=== PATIENT | female | born 1935 | race Hispanic/Latino ===

== ENCOUNTER 2019-02-06 05:12 | Observation (INO) | payer OTHER ==
--- NOTE | 2019-02-03 15:26 | Diagnostic Imaging Report ---
EXAMINATION: PA and lateral views of the chest. COMPARISON: None CLINICAL HISTORY: Preadmission, knee pain DISCUSSION: Lines/tubes: None. Lungs: The lungs are well inflated and clear. No pneumonia or pulmonary edema. Pleura: No pleural effusion or pneumothorax. Heart and mediastinum: The cardiomediastinal silhouette is normal. Bones and soft tissues: No acute bony abnormalities. IMPRESSION: No acute cardiopulmonary abnormalities. Signed by: Dr. Manjit Vasquez M.D. on 02/03/2019 3:23 PM
[~2019-02-06] VITALS: Ht 149.9 cm; Wt 61.4 kg
--- OUTSIDE RECORDS SUMMARY | 2019-02-06 05:14 | XMS REPORT ---
[facility] Address Unknown Phone Unavailable Care Team Providers Care Repairer Veneer Sheet Name Role Phone JESSICA OTOOLE Unavailable Unavailable Problems This patient has no known problems. Allergies, Adverse Reactions, Alerts This patient has no known allergies or adverse reactions. Medications This patient has no known medications. Results Test Description Test Time Test Comments Text Results Atomic Results Result Comments CHEST 2 VIEWS 2019-02-03 15:22:00 [place] [address] Patient Name: LAURITA RICKS MR #: [id number] : 1935 Age/Sex: 83/F Req #: [id number] [facility] Physician: Ordered by: JESSICA OTOOLE MD Report #: [id number] Location: OR Room/Bed: Procedure: [id number] DX/CHEST 2 VIEWS Exam Date: 02/03/19 Exam Time: 1443 REPORT STATUS: Signed EXAMINATION: PA and lateral views of the chest. COMPARISON: None CLINICAL HISTORY: Preadmission, knee pain DISCUSSION: Lines/tubes: None. Lungs: The lungs are well inflated and clear. No pneumonia or pulmonary edema. Pleura: No pleural effusion or pneumothorax. Heart and mediastinum: The cardiomediastinal silhouette is normal. Bones and soft tissues: No acute bony abnormalities. IMPRESSION: No acute cardiopulmonary abnormalities. Signed by: Dr. Jus Muñoz M.D. on 02/03/2019 3:23 PM Dictated By: JUS MUÑOZ MD [id number] Transcribed By: EDUAR on 02/03/19 1523 COPY TO: JESSICA OTOOLE MD
[2019-02-06] MEDS ORDERED: PRE (06:20)
[2019-02-06] MEDS ORDERED: LOSARTAN-HCTZ1 EACH (06:20)
[2019-02-06] MEDS ORDERED: ACULAR5 ML (06:20)
[2019-02-06] MEDS ORDERED: METFORMIN HCL500 MG PO (06:20)
[2019-02-06] MEDS ORDERED: AMLODIPINE BESYL5 MG PO (06:20)
[2019-02-06] MEDS ORDERED: DECARA25000 UNIT (06:20)
[2019-02-06] MEDS ORDERED: XYZAL5 MG (06:20)
[2019-02-06] MEDS ORDERED: SODIUM CHLORIDE 0.9% 500ML 500 ML ONE (06:24)
[2019-02-06] MEDS ORDERED: VANCOMYCIN HCL 1,000 MG ONE (06:24)
[2019-02-06] MEDS ORDERED: TRANEXAMIC ACID 1,000 MG/10 ML ML ONE (06:25)
[2019-02-06] MEDS ORDERED: BACITRACIN 50,000 UNIT VIAL ONE (06:25)
[2019-02-06] MEDS ORDERED: CELECOXIB 200 MG CAP ONE (06:31)
[2019-02-06] MEDS ORDERED: GABAPENTIN 300 MG CAP ONE (06:32)
[2019-02-06] MEDS ORDERED: DEXAMETHASONE SOD PHOS 10 MG/1 ML VIAL ONE (06:32)
[2019-02-06] MEDS ORDERED: VANCOMYCIN 1GM/NS 250 ML 250 ML ONE (06:32)
[2019-02-06] MEDS ORDERED: ROPIVACAINE 246.25 MG, EPINEPHRINE HCL 1:1000 1ML 0.5 MG, CLONIDINE HCL 0.08 MG, KETORO... INJ ONE ×5 (07:30)
[2019-02-06] MEDS ORDERED: ZOLPIDEM TARTRATE 5 MG TAB PO PRN (08:15)
[2019-02-06] MEDS ORDERED: HYDROCODONE/APAP 7.5MG-325MG 1 EA TAB PO PRN (08:15)
[2019-02-06] MEDS ORDERED: DOCUSATE SODIUM 100 MG CAP PO PRN (08:15)
[2019-02-06] MEDS ORDERED: ACETAMINOPHEN 650 MG SUPP PR PRN (08:15)
[2019-02-06] MEDS ORDERED: PROMETHAZINE HCL (IM) 25 MG/ML VIAL INJ PRN (08:15)
[2019-02-06] MEDS ORDERED: ONDANSETRON HCL INJ 2MG/ML 2ML 2 MG/ML VIAL IV PRN (08:15)
[2019-02-06] MEDS ORDERED: DIPHENHYDRAMINE HCL INJ 50 MG/ML VIAL IM/IV PRN (08:15)
[2019-02-06] MEDS ORDERED: HYDROCODONE/APAP 5MG-325MG TAB PO PRN (08:15)
--- NOTE | 2019-02-06 08:59 | Diagnostic Imaging Report ---
Right knee-2 views History: Postoperative radiographs. Comparison: None. Findings: Status post right total knee arthroplasty and patellar resurfacing with prosthetic components in anatomic alignment. Overlying subcutaneous emphysema and surgical skin fredi are present. IMPRESSION: Status post right knee replacement in anatomic position. Signed by: Dr. Louie Jiménez MD on 02/06/2019 8:56 AM
[2019-02-06] MEDS: ASPIRIN 325 MG TAB PO SCH ×2 (09:00→18:04)
[2019-02-06] MEDS ORDERED: CELECOXIB 100 MG CAP PO SCH (09:00)
--- NOTE | 2019-02-06 11:07 | Operative Report ---
DATE OF PROCEDURE: 02/06/2019 SURGEON: Luis Miguel Carty MD MANAGER EQUIPMENT: Herminio Celis, certified PA. PREOPERATIVE DIAGNOSIS: Osteoarthritis, right knee. POSTOPERATIVE DIAGNOSIS: Osteoarthritis, right knee. PROCEDURE: Right total knee arthroplasty. INDICATIONS: The patient is an 83-year-old lady with end-stage arthritis of her right knee. She has failed conservative management and would like to proceed with a right total knee replacement. The risks and benefits have been discussed. The recovery has been explained. She has good family support. She states she understands and wishes to proceed. DESCRIPTION OF PROCEDURE: The patient was brought to the operating room and placed under general anesthetic. She received prophylactic antibiotics, a regional block and tranexamic acid in the holding area. Her right lower extremity was prepped and draped in the sterile manner. A preoperative time-out was performed. The extremity was exsanguinated and a proximal tourniquet was inflated to 300 mmHg. An anterior approach with a medial parapatellar arthrotomy was performed. Clear synovial fluid was removed from the joint. Soft tissue releases were performed to bring the knee up into flexion with the patella everted. Complete loss of articular cartilage in the medial compartment was noted. There was polished subchondral bone. The meniscal remnants and marginal osteophytes were removed. The cruciate ligaments were sacrificed. A Amaya and NephXDx knee system was used. An extramedullary cutting guide was used to resect the proximal tibia. The 9 mm tibial cut was referenced off the unaffected lateral compartment. The tibial base plate was a size #2. The central fin punch was impacted and attention was directed toward the distal femur. An intramedullary cutting guide was used to resect the distal femur in 5 degrees of valgus and rotation referencing off a combination of landmarks including Whitesides line, the epicondylar axis and the posterior condyles. The femoral component was a size #3. The anterior and posterior cuts were made. A 9 mm ultracongruent tibial insert was trialed. This provided appropriate soft tissue balancing in full extension and 90 degrees of flexion. The patella was resurfaced with a 26 mm x 7.5 mm patellar button. The thickness was checked before and after was right around 20 mm. Patellar tracking was concentric. The trial implants were removed. A 100 mL premixed pericapsular JOSE injection was placed into the surrounding soft tissue. The knee was thoroughly irrigated with a shower tip pulsatile lavage. The knee had been irrigated multiple times during the case with a spray bottle with diluted polymyxin and vancomycin spray. The components were cemented into place using a single mix of Palacos cement preloaded with antibiotics. Care was taken to remove extravasated cement. The wound was further irrigated while the cement cured. 500 mg of vancomycin powder was then sprinkled into the joint. The arthrotomy was closed with interrupted #1 Ethibond. The knee was put through flexion and extension to ensure a secure closure. The skin was closed with subcuticular Vicryl and fredi. A sterile bandage was applied. The patient was extubated and transferred to the recovery room in stable condition. Blood loss was minimal. All needle and sponge counts were correct. Luis Miguel Carty MD DR/YAMILA /[id number]
[2019-02-06] MEDS: SODIUM CHLORIDE 0.9% 1000ML 1,000 ML IV SCH ×2 (11:30→21:30)
[2019-02-06] MEDS: ACETAMINOPHEN 1000 MG/100 ML IV SCH ×2 (12:00→18:04)
[2019-02-06] MEDS ORDERED: ACETAMINOPHEN 1000 MG/100 ML 0 ML IV ONE (15:35)
[2019-02-06 16:25] VITALS: BP 129/56
[2019-02-06 16:37] VITALS: BP 129/56
[2019-02-06] MEDS ORDERED: LIDOCAINE HCL 2% LOCAL INJ 5 ML SDV VIAL INJ ONE (17:40)
[2019-02-06] MEDS ORDERED: ACETAMINOPHEN 1000 MG/100 ML IV ONE (17:40)
[2019-02-06] MEDS ORDERED: PROPOFOL IV EMULSION 10 MG/ML 20 ML VIAL ONE (17:40)
[2019-02-06] MEDS ORDERED: SEVOFLURANE INHAL SOLN 250 ML PEN BTL ONE (17:40)
[2019-02-06] MEDS ORDERED: ONDANSETRON HCL INJ 2MG/ML 2ML 2 MG/ML VIAL ONE (17:40)
[2019-02-06] MEDS ORDERED: ROPIVACAINE 0.5% 5 MG/ML 30 ML SDV ONE (17:51)
[2019-02-06] MEDS ORDERED: LIDOCAINE 2%/ EPINEPHRINE 20ML MDV ONE (17:51)
[2019-02-06] MEDS: CELECOXIB 200 MG CAP PO SCH (18:04)
[2019-02-06] MEDS: VANCOMYCIN 1GM/NS 250 ML 250 ML IV SCH (18:20)
[2019-02-06] MEDS ORDERED: MIDAZOLAM HCL 2 MG/2 ML VIAL ONE (18:45)
[2019-02-06] MEDS ORDERED: FENTANYL CITRATE/PF 100MCG/2 ML INJ ONE (18:45)
--- NOTE | 2019-02-06 19:10 | NUR ---
Report taken from morning rn.assessment done.no resp.distress.no pain voiced.voided in bed lopez.plexi pump is in place.dressing site is dry and intact.bed locked and in lowest position.phone and sarah light within reach.instructed to call for assistance as needed.
--- NOTE | 2019-02-06 19:45 | NUR ---
cpm applied @ flexion degree 50.pt tolerated well.
[2019-02-06 20:00] VITALS: BP 121/58
--- NOTE | 2019-02-06 21:45 | NUR ---
stopped cpm machine.
[2019-02-06 22:30] VITALS: BP 121/58
[2019-02-06 23:48] VITALS: BP 128/60
[2019-02-07] MEDS: ACETAMINOPHEN 1000 MG/100 ML IV SCH ×2 (00:02→05:45)
[2019-02-07 04:00] VITALS: BP 120/60
[2019-02-07 05:50] LABS: HEMATOCRIT 30.3 % (34.2-44.1); HEMOGLOBIN 10.2 g/dL (12.0-16.0)
[2019-02-07] MEDS: VANCOMYCIN 1GM/NS 250 ML 250 ML IV SCH (06:00)
--- NOTE | 2019-02-07 06:41 | Consultation ---
DATE OF CONSULTATION: REASON FOR CONSULTATION: Medical management. HISTORY OF PRESENT ILLNESS: The patient is an 83-year-old lady , osteoarthritis. She is doing well postoperatively with minimal pain in the right knee. REVIEW OF SYSTEMS: She denies on review of systems of any chest pain, fever, chills, nausea, vomiting, headache, shortness of breath, or dizziness. PAST MEDICAL HISTORY: Significant for diabetes, hypertension, hyperlipidemia, osteoporosis. MEDICATIONS: See DEC. ALLERGIES: NAPROXEN AND PENICILLIN. FAMILY HISTORY: Noncontributory at this time. SOCIAL HISTORY: Nonsmoker, nondrinker and . PHYSICAL EXAMINATION: VITAL SIGNS: Temperature 98.1, pulse 57, blood pressure 120/60, sats 97% on room air. GENERAL: She is no apparent distress, lying in bed. NECK: Supple. LUNGS: Clear to auscultation bilaterally. CARDIOVASCULAR: Regular rate and rhythm. ABDOMEN: Good bowel sounds. Soft, nontender. EXTREMITIES: No clubbing or cyanosis. NEUROLOGIC: Nonfocal. ASSESSMENT/PLAN: 1. Status post total knee arthroplasty. Continue with pain control. 2. Anemia. Check a CBC. 3. Diabetes. Continue with current care and monitoring. 4. Hyperlipidemia. We will restart her Livalo. 5. Hypertension. We will continue with her home medication and monitor. Please see hospital chart for full details. MD CECE Killian/YAMILA /[id number]
--- NOTE | 2019-02-07 06:50 | NUR ---
Cpm applied @ 0600am.Report given to the oncoming rn.walking rounds done.stable condition.
[2019-02-07] MEDS: SODIUM CHLORIDE 0.9% 1000ML 1,000 ML IV SCH (07:30)
--- NOTE | 2019-02-07 07:32 | NUR ---
RECEIVED PATIENT AND WALKING ROUNDS COMPLETE. PATIENT ON CPM AT THIS TIME. NO SIGNS OF DISTRESS CALL LIGHT IN REACH, WILL CONTINUE TO MONITOR.
[2019-02-07 08:00] VITALS: BP 119/57
[2019-02-07] MEDS ORDERED: METFORMIN HCL 500 MG TAB PO SCH ×2 (08:00→09:00)
--- NOTE | 2019-02-07 08:05 | NUR ---
TOOK PATIENT OUT OF CPM AT THIS TIME. PATIENT TOLERATED WELL, NO SIGNS OF DISTRESS. CALL LIGHT IN REACH.
[2019-02-07] MEDS ORDERED: ACETAMINOPHEN 1000 MG/100 ML IV PRN (08:15)
[2019-02-07] MEDS ORDERED: AMLODIPINE BESYLATE 5 MG TAB PO SCH (09:00)
[2019-02-07] MEDS ORDERED: LOSARTAN POTASSIUM 100 MG TAB PO SCH (09:00)
--- NOTE | 2019-02-07 09:12 | NUR ---
PATIENT WALKING IN CASTRO WITH PT AT THIS TIME. STEADY GAIT, GAIT BELT IN PLACE.
[2019-02-07] MEDS: CELECOXIB 200 MG CAP PO SCH (09:34)
[2019-02-07] MEDS: ASPIRIN 325 MG TAB PO SCH (09:34)
[2019-02-07 09:49] VITALS: BP 119/57
[2019-02-07] MEDS ORDERED: NORCO 7.5-3251 EACH PO (10:13)
[2019-02-07 12:00] VITALS: BP 106/53
--- NOTE | 2019-02-07 12:36 | NUR ---
CASE MANAGEMENT ASSESSMENT Surgical Tech to bedside to discuss plan of care with patient/family. CM/SW role and care transitions discussed. Anticipated discharge plan discussed along with duration of care. CM/SW discussed patients right to make decisions in care. CM/SW work hours given. Spoke with pt and her granddaughter Lizabeth at bedside Patient lives: with her son, but will be staying with her daughter and granddaughter on discharge Admit/Transfer: thru PACU Hospital/ER visits since last admit: 0 POA/Emergency contact: daughter in law Dee Cervantes [phone] Current/Previous Home Health: none. Home health referral was sent to [facility] by Dr. Carty's office prior to pt's arrival. CM called and spoke to Arline at [facility] who said they could not accept pt due to her insurance. CM informed pt's family at bedside. CM also informed Dalia at Dr. Carty's office. She will work on getting a new home health. CM asked her to call pt once new home health is set up. Pt will be staying with her daughter at [address] [place] [id number] PCP/Follow-up Care: Will follow up with Dr. Carty as instructed Current/Previous DME: MICHAEL galloway, CPM delivered to bedside Medications (referring to index hospitalization or the first time you were in the hospital) a. Were changes made in your medications when you were in the hospital on [date of index hospitalization]? n/a b. Did you understand the changes? n/a c. Were you able to obtain your new medications right away? n/a d. Were you able to take your medications like the doctor wanted you to? n/a e. Did the hospital give you an accurate, easy to understand list of medications when you left? n/a Scale of 1-10 how comfortable does patient feel with disease management in outpatient settin Other Services: none Employment Status: retired Areas of Concerns: recent surgery Referral Needs: home health Education Needs: medical management, therapy, post operative instructions IMM/SAWYER given and signed (if applicable): n/a Goal for discharge: home with home health CM/SW left business card at the bedside with contact information. Name and number was also written on the patients whiteboard. Patient verbalized understanding of discussion. CM will follow-up with ongoing discharge and transition of care needs.
[2019-02-07] MEDS ORDERED: ONDANSETRON HCL 4 MG ORAL DISINTEGRATING TAB PO PRN (13:45)
--- NOTE | 2019-02-07 14:00 | NUR ---
REMOVED PATIENTS IV. CATHETER TIP INTACT AND PRESSURE DRESSING APPLIED.
--- NOTE | 2019-02-07 14:19 | NUR ---
PATIENT DISCHARGED FROM FACILITY. PATIENT GATHERED ALL PERSONAL BELONGINGS INCLUDING DISCHARGE INSTRUCTIONS AND FOLLOW UP INFORMATION/PRESCRIPTIONS.
[2019-02-07] MEDS ORDERED: LORATADINE 10 MG TAB PO SCH (21:00)
--- NOTE | 2019-02-08 10:15 | NUR ---
CM received call from pt's daughter in law Dee Correa [phone] inquiring about pt's home health. CM informed her CM will contact Dalia and get back with her. Contacted Dalia and got home health information. [facility] [phone]. CM called and spoke to Stephanie with home health. She stated that they were pending authorization, but will be in touch with the family once everything goes thru. CM called and updated Dee Correa.
== END 2019-02-07 14:19 | disposition home health service (06) ==
LOC: OR 05:12 → PACU V 08:17 → MED/SURG 15:58
PROVIDERS: ADMIT Specialist; ATTEND Specialist
DX: M17.11 Unilateral primary osteoarthritis, right knee (principal); E11.9 Type 2 diabetes mellitus without complications; Z79.84 Long term (current) use of oral hypoglycemic drugs; Z88.6 Allergy status to analgesic agent; Z88.0 Allergy status to penicillin; D64.9 Anemia, unspecified; E78.5 Hyperlipidemia, unspecified; I10 Essential (primary) hypertension; Z01.811 Encounter for preprocedural respiratory examination
CPT/HCPCS: 36415; 71046; 82948; 85014; 85018; 86850; 86900; 86920; G0378; J0171; J1100; J1200; J1885; J2001; J2250; J2405; J2550; J2795; J3370; J7030; J7040

== ENCOUNTER 2019-04-21 13:00 | Outpatient (RCR) | payer OTHER ==
[~2019-04-21 13:00] MED LIST: ACULAR5 ML; AMLODIPINE BESYL5 MG PO; DECARA25000 UNIT; LOSARTAN-HCTZ1 EACH; METFORMIN HCL500 MG PO; NORCO 7.5-3251 EACH PO; PRE; XYZAL5 MG
== END 2019-04-23 ==
LOC: PT 13:00
PROVIDERS: ATTEND Specialist
DX: Z96.651 Presence of right artificial knee joint (principal); Z47.33 Aftercare following explantation of knee joint prosthesis; M17.11 Unilateral primary osteoarthritis, right knee

== ENCOUNTER → 2019-05-24 | Outpatient (RCR) | payer OTHER | LOC: PT 04-24 16:10 | PROVIDERS: ATTEND Specialist | DX: Z96.651 Presence of right artificial knee joint (principal); Z47.33 Aftercare following explantation of knee joint prosthesis; M17.11 Unilateral primary osteoarthritis, right knee | CPT/HCPCS: 97139 ==

== ENCOUNTER 2019-06-23 12:58 | Outpatient (RCR) | payer OTHER | END 2019-06-24 | LOC: PT 12:58 | PROVIDERS: ATTEND Specialist | DX: Z96.651 Presence of right artificial knee joint (principal); Z47.33 Aftercare following explantation of knee joint prosthesis; M17.11 Unilateral primary osteoarthritis, right knee ==

== ENCOUNTER 2019-07-06 11:00 | Outpatient (RCR) | payer OTHER | END 2019-07-24 | LOC: PT 11:00 | PROVIDERS: ATTEND Specialist | DX: Z96.651 Presence of right artificial knee joint (principal); Z47.33 Aftercare following explantation of knee joint prosthesis; M17.11 Unilateral primary osteoarthritis, right knee | CPT/HCPCS: 97139 ==

== ENCOUNTER 2023-01-15 09:47 | Outpatient (RCR) | payer OTHER | END 2023-01-22 | LOC: PT 09:47 | PROVIDERS: ATTEND Physician Assistant | DX: M75.101 Unspecified rotator cuff tear or rupture of right shoulder, not specified as traumatic (principal) ==

== ENCOUNTER 2023-01-25 09:09 | Outpatient (RCR) | payer OTHER | END 2023-02-21 | LOC: PT 09:09 | PROVIDERS: ATTEND Physician Assistant | DX: S49.91XA Unspecified injury of right shoulder and upper arm, initial encounter (principal) ==